=== PATIENT | female | born 1995 | race African-American/Black ===

== ENCOUNTER 2022-08-30 07:17 | Emergency (ER) | payer SELFPAY ==
[~2022-08-30] VITALS: Ht 160 cm; Wt 63.6 kg
[2022-08-30] MEDS ORDERED: IBUP-1493 PO ×2 (07:22→08:40)
[2022-08-30 08:15] VITALS: BP 130/68
[2022-08-30] MEDS ORDERED: KETOROLAC TROMETHAMINE 60 MG/2 ML VIAL IM ONE (08:30)
[2022-08-30] MEDS ORDERED: BACLOFEN 10 MG TABLET PO ONE (08:30)
[2022-08-30] MEDS ORDERED: BACL10TA PO (08:40)
== END 2022-08-30 08:54 | disposition home or self-care (01) ==
LOC: EMS 07:18
DX: M54.32 Sciatica, left side (principal); F12.90 Cannabis use, unspecified, uncomplicated; Z98.890 Other specified postprocedural states
CPT/HCPCS: 99283; 96372; J1885

== ENCOUNTER 2022-09-30 05:05 | Emergency (ER) | payer BC, MEDICAID ==
[~2022-09-30] VITALS: Ht 162.6 cm; Wt 68.0 kg
[~2022-09-30 05:05] MED LIST: BACL10TA PO; IBUP-1493 PO
[2022-09-30 05:11] VITALS: BP 94/58; PULSE 64; RESP 16; TEMP 98.9
[2022-09-30] MEDS ORDERED: OMEP20 PO (06:21)
[2022-09-30] MEDS ORDERED: METH-812 PO (06:21)
== END 2022-09-30 06:38 | disposition home or self-care (01) ==
LOC: EMS 05:06
DX: M54.42 Lumbago with sciatica, left side (principal); K29.70 Gastritis, unspecified, without bleeding; F12.90 Cannabis use, unspecified, uncomplicated; Z98.890 Other specified postprocedural states
CPT/HCPCS: 99283; Z7502